=== PATIENT | male | born 1985 | race Caucasian/White ===

== ENCOUNTER 2017-04-04 19:41 | Emergency (ER) | payer BC ==
--- NOTE | 2017-04-04 20:00 | UC ---
Abdominal Pain Male HPI - HPI Summary HPI Summary: 31 YEAR OLD MALE WITH A RECENT LARGE KIDNEY STONE REMOVAL AND STENT PLACEMENT PRESENTS WITH SEVERE LEFT FLANK PAIN. I WILL SEND HIM TO THE ER - History of Current Complaint Stated Complaint: LOWER ABDOMINAL PAIN Time Seen by Provider: 04/04/17 20:00 Hx Obtained From: Patient Onset/Duration: Sudden Onset Severity Initially: Moderate Severity Currently: Moderate Pain Scale Used: 0-10 Numeric - 7 - Allergies/Home Medications Allergies/Adverse Reactions: Allergies Allergy/AdvReac Type Severity Reaction Status Date / Time No Known Allergies Allergy Verified 04/04/17 20:13 Home Medications: Home Medications Calcium Citrate [Luis Fernando-Citrate] 150 mg PO BID 04/04/17 [History Confirmed 04/04/17 ] Ciprofloxacin TAB* [Cipro 250 MG Tab*] 250 mg PO BID 04/04/17 [History Confirmed 04/04/17] Cyanocobalamin TAB* [Vitamin B12 TAB*] 500 mcg PO DAILY 04/04/17 [History Confirmed 04/04/17] Famotidine TAB* [Pepcid 20 MG TAB*] 20 mg PO BID 04/04/17 [History Confirmed ] Levothyroxine TAB* [Synthroid TAB*] 50 mcg PO DAILY 04/04/17 [History Confirmed 04/04/17] Tamsulosin CAP* [Flomax CAP*] 0.4 mg PO DAILY 04/04/17 [History Confirmed ] PMH/Surg Hx/FS Hx/Imm Hx Previously Healthy: Yes - Surgical History Surgical History: None - Family History Known Family History: Positive: None Family History: no medical issues in family lineage - Social History Alcohol Use: None Substance Use Type: None Smoking Status (MU): Former Smoker Length of Time of Smoking/Using Tobacco: 2014 Review of Systems Constitutional: Negative Skin: Negative Eyes: Negative ENT: Negative Respiratory: Negative Cardiovascular: Negative Gastrointestinal: Abdominal Pain - LLQ Genitourinary: Negative Motor: Negative Neurovascular: Negative Musculoskeletal: Negative Neurological: Negative Psychological: Negative All Other Systems Reviewed And Are Negative: Yes Physical Exam Triage Information Reviewed: Yes Eye Exam: Normal ENT Exam: Normal Dental Exam: Normal Neck exam: Normal Neck: Positive: 1 Respiratory Exam: Normal Cardiovascular Exam: Normal Abdomen Description: Positive: Other: - LLQ PAIN Musculoskeletal Exam: Normal Neurological Exam: Normal Psychological Exam: Normal Skin Exam: Normal Abd Pain Male Course/Dx - Course Course Of Treatment: LLQ PAIN - Differential Dx/Clinical Impression Provider Diagnoses: LLQ PAIN Discharge - Discharge Plan Condition: Stable Disposition: HOME Patient Education Materials: Kidney Stones (ED), Flank Pain (ED) Referrals: Non Staff,Doctor [Primary Care Provider] - Additional Instructions: PATIENT SUGGESTED TO GO TO ER FOR SEVERE LEFT FLANK PAIN.
[2017-04-04 20:22] VITALS: BP 138/107
== END 2017-04-04 20:27 | disposition home or self-care (01) ==
LOC: UCCORT 19:41
DX: R10.32 Left lower quadrant pain (principal); Z87.442 Personal history of urinary calculi; Z87.891 Personal history of nicotine dependence
CPT/HCPCS: 99212; G0463